=== PATIENT | female | born 1970 | race Caucasian/White ===

== ENCOUNTER 2021-01-15 16:13 | Emergency (ER) | payer OTHER ==
[2021-01-15 16:32] VITALS: BP 110/78; PULSE 99; TEMP 98.6; BMI 83.2
[2021-01-15] MEDS ORDERED: PHENAZOPYRIDINE HCL 100 MG TABLET (FP) PO ONE (16:52)
[2021-01-15] MEDS ORDERED: KETOROLAC TROMETHAMINE 30 MG/1 ML VIAL IM ONE (17:08)
[2021-01-15] MEDS ORDERED: PHENAZOPYRIDINE HCL 100 MG TABLET (FP) ONE (17:15)
[2021-01-15] MEDS ORDERED: KETOROLAC TROMETHAMINE 30 MG/1 ML VIAL ONE (17:15)
[2021-01-15 17:35] LABS: BASO % 0.9 % (0-2.0); EOS % 0.6 % (0-4.5); HEMATOCRIT 38.1 % (32.4-45.2); HEMOGLOBIN 12.6 GM/dL (10.7-15.3); LYMPH % 25.6 % (8-40); MCH 31.4 pg (25.7-33.7); MCHC 33.1 g/dl (32.0-36.0); MEAN CELL VOLUME 94.8 fl (80-96); MEAN PLT VOLUME 8.3 fl (7.5-11.1); MONO % 6.3 % (3.8-10.2); NEUT % 66.6 % (42.8-82.8); PLATELET COUNT 357 K/MM3 (134-434); RBC 4.02 M/mm3 (3.60-5.2); RDW 13.3 % (11.6-15.6); WHITE BLOOD COUNT 13.5 K/mm3 (4.0-10.0)
[2021-01-15 17:38] LABS: HCG,QUALITATIVE URINE Negative
[2021-01-15 17:40] LABS: EPI CELLS 10 /uL (0-25.1); HYALINE CASTS 1 /uL (0-3.1); PH,URINE 5.5 (5.0-8.0); URINE APPEARANCE CLOUDY; URINE BACTERIA >9,000 /uL (0-1359); URINE BILIRUBIN NEGATIVE (NEGATIVE); URINE COLOR YELLOW; URINE GLUCOSE (UA) NEGATIVE (NEGATIVE); URINE KETONE NEGATIVE (NEGATIVE); URINE LEUK ESTERASE 3+ (NEGATIVE); URINE NITRITE NEGATIVE (NEGATIVE); URINE PROTEIN 1+ (NEGATIVE); URINE RBC 71 /uL (0-23.9); URINE UROBILINOGEN 0.2 mg/dL (0.2-1.0); URINE WBC 1902 /uL (0-25.8)
[2021-01-15 17:56] LABS: CALCIUM 9.5 mg/dL (8.5-10.1)
[2021-01-15 17:57] LABS: ALBUMIN 3.8 g/dl (3.4-5.0); BLOOD UREA NITROGEN 7.6 mg/dL (7-18)
[2021-01-15 18:00] LABS: BILIRUBIN,TOTAL 0.6 mg/dL (0.2-1); CREATININE 0.8 mg/dL (0.55-1.3); TOT PROT 7.5 g/dl (6.4-8.2)
[2021-01-15] MEDS ORDERED: SULFAMETHOXAZOLE/TRIMETHOPRIM 800MG/160MG D.S. TABLET PO ONE (18:30)
[2021-01-15] MEDS ORDERED: SULFAMETHOXAZOLE/TRIMETHOPRIM 800MG/160MG D.S. TABLET ONE (19:08)
== END 2021-01-15 19:39 | disposition home or self-care (01) ==
LOC: JER 16:13
PROC: 3E0233Z Introduction of Anti-inflammatory into Muscle, Percutaneous Approach (ICD-10-PCS; principal; 2021-01-15)
DX: N30.00 Acute cystitis without hematuria (principal); R10.30 Lower abdominal pain, unspecified
CPT/HCPCS: 36415; 76830-TC; 80053; 81003; 83690; 84703; 85025; 87086; 87186; 96372; 99284-25